=== PATIENT | female | born 1995 | race African-American/Black ===

== ENCOUNTER → 2016-10-18 | Outpatient (CLI) | payer OTHER ==
--- NOTE | 2016-10-18 19:02 | REP ---
BIOPHYSICAL PROFILE: HISTORY: Twin gestation. There is a diamniotic, dichorionic twin gestation. The placentas are anterior. There is no placenta previa or abruption. The biophysical profile of twin A is 8/8. The SD ratio is 2.37. The biophysical profile of twin D is 8/8. The SD ratio is 2.71. IMPRESSION: The biophysical profiles of twin A and twin B are 8/8. Signed by Trevor Lee MD 10/18/2016 07:06 P
== END ==
LOC: M RAD 17:14
PROVIDERS: ATTEND Nurse Practitioner Women's Health
DX: O30.001 Twin pregnancy, unspecified number of placenta and unspecified number of amniotic sacs, first trimester (principal); Z3A.00 Weeks of gestation of pregnancy not specified

== ENCOUNTER → 2017-06-26 | Outpatient (REF) | payer OTHER | LOC: M SFHCLUC 11:43 | DX: R21 Rash and other nonspecific skin eruption (principal) | CPT/HCPCS: 87070 ==

== ENCOUNTER → 2017-06-26 | Outpatient (REF) | payer OTHER | LOC: M SFHCLERA 18:30 | DX: R21 Rash and other nonspecific skin eruption (principal) ==

== ENCOUNTER → 2017-06-29 | Outpatient (REF) | payer OTHER ==
[2017-06-30 12:08] LABS: CHLAMYDIA DNA AMPLIFICATION NEGATIVE (NEGATIVE); GC DNA AMPLIFICATION NEGATIVE (NEGATIVE)
== END ==
LOC: M LAB REF 09:12
DX: N76.0 Acute vaginitis (principal)

== ENCOUNTER → 2017-07-01 | Outpatient (REF) | payer OTHER ==
[2017-07-01 19:27] LABS: HIV 1&2 SCREEN CENTAUR NEGATIVE (NEGATIVE)
[2017-07-01 19:41] LABS: CHLAMYDIA DNA AMPLIFICATION NEGATIVE (NEGATIVE); GC DNA AMPLIFICATION NEGATIVE (NEGATIVE)
== END ==
LOC: M LAB REF 17:03
DX: R21 Rash and other nonspecific skin eruption (principal)